=== PATIENT | male | born 1960 | race Caucasian/White ===

== ENCOUNTER → 2018-11-10 15:53 | Outpatient (CLI) | payer OTHER, SELFPAY ==
--- NOTE | 2018-11-10 | DI.RAD.S_ITS ---
PROCEDURE: XR FOOT RT MIN 3V INDICATIONS: RIGHT FOOT PAIN TECHNIQUE: 3 views of the foot were acquired. COMPARISON: None. FINDINGS: Bones: No fractures or dislocations. No suspicious bony lesions. Diffuse hindfoot midfoot degenerative spurring and subchondral sclerosis. Hallux valgus appearance although weightbearing views of the more specific. Small calcification adjacent to the first MTP joint. Os peroneum. Lucency involving the medial aspect of the first metatarsal head Soft tissues: No tibiotalar joint effusion. Achilles tendon appears normal. IMPRESSION: Hallux valgus first MTP joint degeneration. Diffuse hindfoot and midfoot degenerative spurring. No fracture. Lucency involving the medial aspect of the first metatarsal head. This could represent erosion related to inflammatory arthropathy such as gout. Please correlate clinically and with laboratory data Dictated by: Perry Giang M.D. on 11/10/2018 at 17:13 Approved by: Perry Giang M.D. on 11/10/2018 at 17:17
== END ==
PROVIDERS: PCP Family Medicine; Visit Provider Family Medicine
DX: M79.671 Pain in right foot (principal); M20.11 Hallux valgus (acquired), right foot; M19.071 Primary osteoarthritis, right ankle and foot; M77.51 Other enthesopathy of right foot and ankle
CPT/HCPCS: 73630

== ENCOUNTER → 2021-09-23 17:03 | Outpatient (ROUT) | payer OTHER, SELFPAY ==
[2021-09-23 18:05] LABS: COVID-19 CEPHEID PCR (VTM/NP) Negative (Negative)
== END ==
PROVIDERS: PCP Family Medicine; Visit Provider Family Medicine
DX: Z20.822 Contact with and (suspected) exposure to COVID-19 (principal)
CPT/HCPCS: U0003

== ENCOUNTER → 2022-07-30 14:29 | Outpatient (CLI) | payer OTHER, SELFPAY ==
--- NOTE | 2022-07-30 14:30 | DI.RAD.S_ITS ---
PROCEDURE: XR LUMBAR SPINE MIN 4V INDICATIONS: Low Back Pain TECHNIQUE: 5 views of the lumbar spine were acquired, including bilateral oblique views. COMPARISON: None. FINDINGS: Bones: 5 nonrib-bearing vertebrae are present. No significant scoliosis. There is retrolisthesis of L4 on L5 measuring at 0.4 cm. . No vertebral body compression fractures. Small vertebral body osteophytes. There is L5 facet joint hypertrophy. No suspicious bony lesions. Soft tissues: Overlying bowel gas pattern is normal. No suspicious soft tissue calcifications. Oblique images: No pars defects identified. IMPRESSION: No compression fracture. [id number] DDD. Dictated by: Yuniel Michelle M.D. on 07/30/2022 at 15:33 Approved by: Yuniel Michelle M.D. on 07/30/2022 at 15:34
== END ==
PROVIDERS: PCP Family Medicine; Referring Provider Anesthesiology; Visit Provider Anesthesiology
DX: M47.817 Spondylosis without myelopathy or radiculopathy, lumbosacral region (principal); M51.36 Other intervertebral disc degeneration, lumbar region
CPT/HCPCS: 72110

== ENCOUNTER → 2022-08-04 14:29 | Outpatient (CLI) | payer OTHER, SELFPAY ==
--- NOTE | 2022-08-04 14:31 | DI.RAD.S_ITS ---
PROCEDURE: XR CERVICAL SPINE 4V OR 5V INDICATIONS: Neck pain TECHNIQUE: Five views of the cervical spine were acquired. COMPARISON: None. FINDINGS: Disc height loss at C6-C7 with posterior osteophytic ridging of the endplates and uncovertebral spurring. Probable mild to moderate spinal canal or neural foraminal stenosis. Mild to moderate neural foraminal narrowing on the left at C3-C4. No suspicious lytic or blastic osseous lesion. IMPRESSION: Degenerative changes. No acute finding. Dictated by: Ciaran Alex M.D. on 08/04/2022 at 14:37 Approved by: Ciaran Alex M.D. on 08/04/2022 at 14:42
== END ==
PROVIDERS: PCP Family Medicine; Referring Provider Family Medicine; Visit Provider Family Medicine
DX: M54.2 Cervicalgia (principal); M47.812 Spondylosis without myelopathy or radiculopathy, cervical region
CPT/HCPCS: 72050

== ENCOUNTER → 2022-08-25 08:19 | Outpatient (CLI) | payer OTHER, SELFPAY ==
--- NOTE | 2022-08-25 08:22 | DI.MRI.S_ITS ---
PROCEDURE: MR LUMBAR SPINE WO CON INDICATIONS: Lumbar radiculopathy TECHNIQUE: Noncontrast sagittal T1 spin echo and T2 fast echo, sagittal STIR, and T2 fast spin echo through the lumbar spine. In cases with scoliosis, additional coronal T2 fast spin echo may be performed. COMPARISON: [facility], MR, L-SPINE WITHOUT CONTRAST, 11/11/2015, 19:48. [facility], MR, L-SPINE WITHOUT CONTRAST, 06/19/2008, 7:39. [facility], MR, L-SPINE WITHOUT CONTRAST, 03/08/2011, 19:24. [facility], CR, XR LUMBAR SPINE MIN 4V, 07/30/2022, 14:29. FINDINGS: Image quality: Diagnostic Alignment and Curvature: There is mild grade 1 retrolisthesis seen at L4-L5 and at L5-S1. Bone Marrow: Marrow is of normal overall signal. No acute vertebral body compression fractures. Spinal Cord: Conus medullaris terminates at the L1 level. Visualized cord demonstrates normal signal and size. Paraspinous Soft Tissues: No paravertebral masses. T12-L1: Normal appearance. L1-L2: The disc height and disk signal are relatively well-preserved. Mild generalized disc bulge is seen. There is a superimposed central disc protrusion. Mild facet joint hypertrophy is seen. No significant neural foraminal narrowing is seen. [id number] central canal narrowing is seen. These imaging findings have progressed compared to the prior study. L2-L3: The disc height is well-preserved. Loss of disc signal is seen at this level. Mild to moderate disc bulge is seen. Moderate facet joint hypertrophy is seen. No neural foraminal narrowing is seen. Mild to moderate central canal narrowing is seen. There is mild progression compared to 2016. L3-L4: The disc height and disk signal are well-preserved. Moderate disc bulge is seen, which is slightly eccentric to the right. Moderate to prominent facet hypertrophy is seen at this level. Mild bilateral neural foraminal narrowing is seen. Moderate central canal narrowing is seen. These imaging findings have progressed compared to the prior study. L4-L5: The disc height is well-preserved. Loss of disc signal is seen at this level. Moderate generalized disc bulge is seen. There is a superimposed central disc protrusion. There is a focal annular fissure seen posteriorly. Moderate facet joint hypertrophy is seen. There is moderate right-sided and at least moderate left-sided neural foraminal narrowing. There is a mild degree of compression seen upon the exiting left L4 nerve root. Moderate central canal narrowing is seen. These imaging findings have mildly progressed compared to the prior study. L5-S1: Moderate loss of disc height is seen. Loss of disc signal is seen. Reactive marrow endplate changes are seen, which are hyperintense on T1-weighted and T2-weighted imaging and most consistent with fatty metaplasia (Modic type II changes). At least moderate disc bulge is seen at this level, which is eccentric to the right. Moderate facet joint hypertrophy is seen. There is at least moderate left-sided and moderate right-sided neural foraminal narrowing. No significant central canal narrowing is seen. When comparison is made with the prior images, these findings are similar. IMPRESSION: Multiple levels of lumbar spine degenerative change are seen, which are worst inferiorly. There is progression at several levels compared to 2016. Dictated by: Bj Rodriguez M.D. on 08/25/2022 at 9:26 Approved by: Bj Rodriguez M.D. on 08/25/2022 at 9:32
== END ==
PROVIDERS: PCP Family Medicine; Referring Provider Anesthesiology; Visit Provider Anesthesiology
DX: M47.26 Other spondylosis with radiculopathy, lumbar region (principal); M47.27 Other spondylosis with radiculopathy, lumbosacral region
CPT/HCPCS: 72148

== ENCOUNTER 2022-11-18 15:28 | Outpatient (CLI) | payer OTHER, SELFPAY ==
--- NOTE | 2022-11-18 15:30 | DI.RAD.S_ITS ---
PROCEDURE: PAIN L/S FACET INJ/BLK 1ST LINSEY COMPARISON: [facility], MR, MR LUMBAR SPINE WO CON, 08/25/2022, 8:40. INDICATIONS: SPONDYLOSIS FINDINGS: Fluoroscopic spot filming was performed to verify placement of spinal needles on both sides at the L4, L5, and S1 levels, as labeled on the films. Appropriate location of the needle tips was confirmed by injection of iodinated contrast. IMPRESSION: Intraprocedural examination demonstrating appropriate positions of the needles. Dictated by: Bj Rodriguez M.D. on 11/18/2022 at 17:10 Approved by: Bj Rodriguez M.D. on 11/18/2022 at 17:10
[2022-11-18 15:40] VITALS: BP 113/78; PULSE 55; RESP 18; TEMP 36.1; O2SAT 98
[2022-11-18 16:15] VITALS: BP 122/67; PULSE 52; RESP 16; O2SAT 96
[2022-11-18] MEDS: IOPAMIDOL 15 ML VIAL 3 ML INJ (16:18)
[2022-11-18] MEDS: BUPIVACAINE 0.5% (PF) 30 ML VIAL 5 ML INJ (16:19)
[2022-11-18 16:20] VITALS: BP 121/69; PULSE 56; RESP 16; O2SAT 93
[2022-11-18 16:25] VITALS: BP 127/74; PULSE 50; RESP 16; O2SAT 96
[2022-11-18 16:30] VITALS: BP 136/83; PULSE 65; RESP 18; O2SAT 98
--- NOTE | 2022-11-18 17:01 | P.PCN_ITS ---
Date/Time/Diagnoses Date of procedure: 11/18/22 Time of procedure: 16:00 Procedure Notes Physician: Blu Beavers Total Fluoroscopy time (seconds): 13 Total sedation minutes: 0 Procedure in detail & Post-procedure care: Bilateral L3, 4, 5 Lumbar Medial Branch Blocks Indications: Pako is referred by Dr. George for treatment of lumbar spondylosis with low back pain. Preoperative diagnosis: Bilateral lumbar spondylosis Postoperative diagnosis: Same Pre-procedure History: Patient demonstrates today moderate to severe non- radicular back pain without neurologic deficit aggravated by hyperextension yes Back pain greater than leg pain? yes Patient today has tenderness over the suspected joint(s) yes History of post-traumatic injury? no Hypertrophic arthropathy yes Back pain associated with suspected motion segment instability, hypermobility or pseudoarthrosis no Pre-testing pain score (VAS): 6/10 Focused Examination: Ax3 Mood and affect are normal Vital Signs: VSS ASA: 2 Consent: Following review of allergies and potential side effects/complications, including, but not necessarily limited to, infection, allergic reaction, local tissue breakdown, stroke, temporary or permanent nerve injury, paralysis, and possible , the patient indicated that they understood and agreed to proceed.? An informed consent document was signed by the patient, witnessed by a nurse and placed in the patient's chart.? Additionally, other treatment options including medications and physical therapy were reviewed with the patient. All questions were answered. Site was then marked. Anesthesia: Local Position: Prone Monitoring: NIBP, Pulse oximetry, 3 lead EKG Needle used: 22G 3.5 inch spinal needle Contrast: Isovue 300M Injectate: 0.5% bupivacaine 1 mL per site Procedure: The patient was brought into the procedure room and positioned into the prone position. Skin was prepped with a Chloraprep solution, allowed to air dry, and then draped in sterile fashion.? The right L4-5 and L5-S1 facet joints were visually identified with fluoroscopy. Lidocaine 1% was used to anesthetize the skin over each target destination with a 25ga needle. A 22 ga, 3.5 inch spinal needle was advanced to the location of the medial branch at the junction of the superior articular process and the transverse process at L3,4,5 using intermittent fluoroscopy in the AP view. Isovue 300M contrast 0.2ml was injected at each level outlining the medial borders for each level and the base of the SAP of the sacrum in the AP and lateral views. There was no evidence of vascular or intrathecal uptake. The above injectate was slowly injected at each target destination. The left L4-5 and L5-S1 facet joints were visually identified with fluoroscopy. Lidocaine 1% was used to anesthetize the skin over each target destination with a 25ga needle. A 22 ga, 3.5 inch spinal needle was advanced to the location of the medial branch at the junction of the superior articular process and the transverse process at L3,4,5 using intermittent fluoroscopy in the AP view. Isovue 300M contrast 0.2ml was injected at each level outlining the medial borders for each level and the base of the SAP of the sacrum in the AP and lateral views. There was no evidence of vascular or intrathecal uptake. The above injectate was slowly injected at each target destination. At the end of the procedure the needles were withdrawn and Band-Aids were applied for a dressing. Post Procedure: Patient was taken to the recovery and monitored. The patient was provided a Pain Log to continue to record the patient's response to the target- specific procedure prior to the patient's follow-up visit with the referring physician. Patient was stable upon discharge. Detailed post procedure instructions were provided. Patient was asked to call in the event of worsening pain, fever, weakness, numbness or bladder or bowel incontinence. Postoperatively, today patient demonstrates the following changes with hyperextension and with tenderness over the suspected joint(s). Provacative testing using the Freeman's facet loading test Right side Left side Directly before the block ?VAS (0-10) = 6/10 VAS (0-10) = 6/10 5 minutes after the block VAS (0-10) = 0/10 VAS (0-10) = 0/10 Percentage relief obtained with this diagnostic block 100 % 100 % Any improved physical functioning directly after the blocks? Range of motion Based on the medial branches blocked today, if the patient meets insurance criteria for radiofrequency, the treatment should result in the denervation of the bilateral L4-5 and L5-S1 facet joint nerves. We would expect to denervate a total of 4 facets during the radiofrequency ablation.
== END 2022-11-18 16:44 | disposition home or self-care (01) ==
PROVIDERS: PCP Family Medicine; Referring Provider Anesthesiology; Visit Provider Anesthesiology
DX: M47.816 Spondylosis without myelopathy or radiculopathy, lumbar region (principal)
CPT/HCPCS: 64493; 64494

== ENCOUNTER 2022-12-21 08:00 | Outpatient (CLI) | payer OTHER, SELFPAY ==
--- NOTE | 2022-12-21 08:02 | DI.RAD.S_ITS ---
PROCEDURE: PAIN L/S FACET INJ/BLK 1ST LINSEY COMPARISON: [facility], XA, PAIN L/S FACET INJ/BLK 1ST LINSEY, 11/18/2022, 16:16. INDICATIONS: SPONDYLOSIS FINDINGS: Four intra procedural fluoroscopic images obtained for guidance and anatomical localization. IMPRESSION: Intraprocedural fluoroscopy was provided for guidance and anatomical localization. Please see the procedure report for further details. Dictated by: Antwon Lund M.D. on 12/21/2022 at 16:26 Approved by: Antwon Lund M.D. on 12/21/2022 at 16:27
[2022-12-21 08:05] VITALS: BP 120/81; PULSE 50; RESP 18; TEMP 36.3; O2SAT 97
[2022-12-21 08:20] VITALS: BP 126/79; PULSE 53; RESP 14; O2SAT 96
[2022-12-21 08:25] VITALS: PULSE 50; RESP 15; O2SAT 96
[2022-12-21] MEDS: IOPAMIDOL 15 ML VIAL 3 ML INJ (08:27)
[2022-12-21] MEDS: LIDOCAINE 2% INJ MDV 20ML 20 ML INJ (08:27)
[2022-12-21 08:30] VITALS: BP 108/70; PULSE 51; RESP 15; O2SAT 96
[2022-12-21 08:34] VITALS: BP 111/67; PULSE 50; RESP 15; O2SAT 96
[2022-12-21 08:37] VITALS: BP 130/86; PULSE 67; RESP 18; O2SAT 97
--- NOTE | 2022-12-21 10:28 | P.PCN_ITS ---
Date/Time/Diagnoses Date of procedure: 12/21/22 Time of procedure: 08:30 Procedure Notes Physician: Blu Beavers Total Fluoroscopy time (seconds): 9 Total sedation minutes: 0 Procedure in detail & Post-procedure care: Bilateral L3, 4, 5 Lumbar Medial Branch Blocks Indications: Pako is presenting for treatment of lumbar spondylosis with low back pain. Preoperative diagnosis: Bilateral lumbar spondylosis Postoperative diagnosis: Same Pre-procedure History: Patient demonstrates today moderate to severe non- radicular back pain without neurologic deficit aggravated by hyperextension yes Back pain greater than leg pain? yes Patient today has tenderness over the suspected joint(s) yes History of post-traumatic injury? no Hypertrophic arthropathy yes Back pain associated with suspected motion segment instability, hypermobility or pseudoarthrosis no Pre-testing pain score (VAS): 6/10 Focused Examination: Ax3 Mood and affect are normal Vital Signs: VSS ASA: 2 Consent: Following review of allergies and potential side effects/complications, including, but not necessarily limited to, infection, allergic reaction, local tissue breakdown, stroke, temporary or permanent nerve injury, paralysis, and possible , the patient indicated that they understood and agreed to proceed.? An informed consent document was signed by the patient, witnessed by a nurse and placed in the patient's chart.? Additionally, other treatment options including medications and physical therapy were reviewed with the patient. All questions were answered. Site was then marked. Anesthesia: Local Position: Prone Monitoring: NIBP, Pulse oximetry, 3 lead EKG Needle used: 25G 3.5 inch spinal needle Contrast: Isovue 300M Injectate: 2% lidocaine 1 mL per site Procedure: The patient was brought into the procedure room and positioned into the prone position. Skin was prepped with a Chloraprep solution, allowed to air dry, and then draped in sterile fashion.? The right L4-5 and L5-S1 facet joints were visually identified with fluoroscopy. Lidocaine 1% was used to anesthetize the skin over each target destination with a 25ga needle. A 25 ga, 3.5 inch spinal needle was advanced to the location of the medial branch at the junction of the superior articular process and the transverse process at L3,4,5 using intermittent fluoroscopy in the AP view. Isovue 300M contrast 0.2ml was injected at each level outlining the medial borders for each level and the base of the SAP of the sacrum in the AP and lateral views. There was no evidence of vascular or intrathecal uptake. The above injectate was slowly injected at each target destination. The left L4-5 and L5-S1 facet joints were visually identified with fluoroscopy. Lidocaine 1% was used to anesthetize the skin over each target destination with a 25ga needle. A 22 ga, 3.5 inch spinal needle was advanced to the location of the medial branch at the junction of the superior articular process and the transverse process at L3,4,5 using intermittent fluoroscopy in the AP view. Isovue 300M contrast 0.2ml was injected at each level outlining the medial borders for each level and the base of the SAP of the sacrum in the AP and lateral views. There was no evidence of vascular or intrathecal uptake. The above injectate was slowly injected at each target destination. At the end of the procedure the needles were withdrawn and Band-Aids were applied for a dressing. At the end of the procedure the needles were withdrawn and Band-Aids were applied for a dressing. Post Procedure: Patient was taken to the recovery and monitored. The patient was provided a Pain Log to continue to record the patient's response to the target- specific procedure prior to the patient's follow-up visit with the referring physician. Patient was stable upon discharge. Detailed post procedure instructions were provided. Patient was asked to call in the event of worsening pain, fever, weakness, numbness or bladder or bowel incontinence. Postoperatively, today patient demonstrates the following changes with hyperextension and with tenderness over the suspected joint(s). Provacative testing using the Freeman's facet loading test Right side Left side Directly before the block ?VAS (0-10) = 6/10 VAS (0-10) = 6/10 5 minutes after the block VAS (0-10) = 0/10 VAS (0-10) = 0/10 Percentage relief obtained with this diagnostic block 100 % 100 % Any improved physical functioning directly after the blocks? Range of motion Based on the medial branches blocked today, if the patient meets insurance [place] for radiofrequency, the treatment should result in the denervation of the bilateral L4-5 and L5-S1 facet joint nerves. We would expect to denervate a total of 4 facets during the radiofrequency ablation.
== END 2022-12-21 08:49 | disposition home or self-care (01) ==
LOC: RAD 08:01
PROVIDERS: PCP Family Medicine; Referring Provider Anesthesiology; Visit Provider Anesthesiology
DX: M47.816 Spondylosis without myelopathy or radiculopathy, lumbar region (principal)
CPT/HCPCS: 64493; 64494

== ENCOUNTER 2023-01-12 09:25 | Outpatient (CLI) | payer OTHER, SELFPAY ==
[2023-01-12] VITALS (12 sets, daily range): BP systolic 118–152; BP diastolic 63–97; PULSE 49–62; RESP 12–18; TEMP 36.4; O2SAT 96–98
--- NOTE | 2023-01-12 09:26 | DI.RAD.S_ITS ---
PROCEDURE: PAIN L/S MED/LAT N RFA BILAT INDICATIONS: SPONDYLOSIS COMPARISON: [facility], XA, PAIN L/S FACET INJ/BLK 1ST LINSEY, 11/18/2022, 16:16. [facility], XA, PAIN L/S FACET INJ/BLK 1ST LINSEY, 12/21/2022, 8:26. FINDINGS: Fluoroscopic spot filming was performed to verify placement of spinal needles on both sides at the L4, L5, and S1 levels, as labeled on the films. IMPRESSION: Images during rhizotomy within normal limits. Dictated by: Bj Rodriguez M.D. on 01/12/2023 at 11:18 Approved by: Bj Rodriguez M.D. on 01/12/2023 at 11:18
[2023-01-12] MEDS: LIDOCAINE 2% INJ MDV 20ML 20 ML INJ (09:48)
[2023-01-12] MEDS: BUPIVACAINE 0.5% (PF) 10 ML VIAL INJ (09:48)
[2023-01-12] MEDS: DEXAMETHASONE 10 MG/ML VIAL 20 MG INJ (09:48)
--- NOTE | 2023-01-12 10:59 | PC.NURSE ---
Patient reports that his dizziness and lightheaded is better. Reports he feels good to go home. called. Denies dizziness from transfer from chair to w/c and w/c to car. Denies any pain or discomfort
--- NOTE | 2023-01-12 13:48 | P.PCN_ITS ---
Date/Time/Diagnoses Date of procedure: 01/12/23 Time of procedure: 10:00 Procedure Notes Physician: Blu Beavers Total Fluoroscopy time (seconds): 30 Total sedation minutes: 0 Procedure in detail & Post-procedure care: Bilateral L3, 4, 5 Lumbar Medial Branch Radio Frequency Ablation Indications: Pako presents for treatment of lumbar spondylosis with low back pain. Preoperative diagnosis: Bilateral lumbar spondylosis Postoperative diagnosis: Same Pre-procedure History: Patient demonstrates today moderate to severe non-radicular low back pain without neurologic deficit aggravated by hyperextension yes Back pain greater than leg pain? yes Patient today has tenderness over the suspected joint(s) yes History of post-traumatic injury? no Hypertrophic arthropathy yes Back pain associated with suspected motion segment instability, hypermobility or pseudoarthrosis no Focused Examination: Ax3 Mood and affect are normal Vital Signs: VSS Consent: Following review of allergies and potential side effects/complications, including, but not necessarily limited to, infection, allergic reaction, local tissue breakdown, stroke, temporary or permanent nerve injury, paralysis, and possible , the patient indicated that they understood and agreed to proceed.? An informed consent document was signed by the patient, witnessed by a nurse and placed in the patient's chart.? Additionally, other treatment options including medications and physical therapy were reviewed with the patient. All questions were answered. Site was then marked. Position: Prone Monitoring: NIBP, Pulse oximetry, 3 lead EKG Needle used: 18 guage, 100 mm, 10 mm active tip Anesthesia: Local Procedure: The patient was brought into the procedure room and positioned into the prone position. Skin was prepped with a Chloraprep solution, allowed to air dry, and then draped in sterile fashion.? The right L4-5 and L5-S1 facet joints were visually identified with fluoroscopy. Lidocaine 1% was used to anesthetize the skin over each target destination with a 25ga needle. An 18 ga, 100 mm RFA needle with a 10 mm active tip was advanced to the location of the medial branch at the junction of the superior articular process and the transverse process at right L3, 4, 5 using intermittent fluoroscopy in the oblique view with caudal tilt. AP and lateral radiographs were taken to confirm proper needle placement. No paresthesias were noted. The stylet was removed and the radiofrequency probe was inserted through the cannula. Each level was individually tested. The impedance was between 300 and 800 ohms at all levels.? Motor stimulation up to 2V elicited multifidus twitching in the lumbar spine. There was no motor stimulation in the lower extremities. After negative aspiration, 1ml of 2% lidocaine was injected at each of the levels and radiofrequency denervation carried out using 80 degrees Celsius for 90 seconds. The needles were then rotated 90 degrees and a second ablation was performed at 80 degrees Celsius for 90 seconds. After ablation, a mixture of 20 mg dexamethasone with 0.5% bupivacaine 4 mL was injected in equal amounts among the sites (1 mL per site). Next, the left L4-5 and L5-S1 facet joints were visually identified with fluoroscopy. Lidocaine 1% was used to anesthetize the skin over each target destination with a 25ga needle. An 18 ga, 100 mm RFA needle with a 10 mm active tip was advanced to the location of the medial branch at the junction of the superior articular process and the transverse process at left L3, 4, 5 using intermittent fluoroscopy in the oblique view with caudal tilt. AP and lateral radiographs were taken to confirm proper needle placement. No paresthesias were noted. The stylet was removed and the radiofrequency probe was inserted through the cannula. Each level was individually tested. The impedance was between 300 and 800 ohms at all levels.? Motor stimulation up to 2V elicited multifidus twitching in the lumbar spine. There was no motor stimulation in the lower extremities. After negative aspiration, 1ml of 2% lidocaine was injected at each of the levels and radiofrequency denervation carried out using 80 degrees Celsius for 90 seconds. The needles were then rotated 90 degrees and a second ablation was performed at 80 degrees Celsius for 90 seconds. After ablation, a mixture of 20 mg dexamethasone with 0.5% bupivacaine 4 mL was injected in equal amounts among the sites (1 mL per site). At the end of the procedure the needles were withdrawn and Band-Aids were applied for a dressing. This procedure is expected to denervate the bilateral L4-5 and L5-S1 facet joints. Post Procedure: Patient was taken to the recovery and monitored. The patient was provided a Pain Log to continue to record the patient's response to the target- specific procedure prior to the patient's follow-up visit with the referring physician. Patient was stable upon discharge. Detailed post procedure instructions were provided. Patient was asked to call in the event of worsening pain, fever, weakness, numbness or bladder or bowel incontinence. Complications: None
== END 2023-01-12 11:01 | disposition home or self-care (01) ==
PROVIDERS: PCP Family Medicine; Referring Provider Anesthesiology; Visit Provider Anesthesiology
DX: M47.816 Spondylosis without myelopathy or radiculopathy, lumbar region (principal)
CPT/HCPCS: 64635; 64636; J1100

== ENCOUNTER 2023-04-06 07:52 | Outpatient (CLI) | payer OTHER, SELFPAY ==
--- NOTE | 2023-04-06 07:53 | DI.RAD.S_ITS ---
PROCEDURE: PAIN SI JOINT INJECTION LINSEY INDICATIONS: JOINT DISFUNCTION COMPARISON: [facility], XA, PAIN L/S MED/LAT N RFA BILAT, 01/12/2023, 9:46. FINDINGS: Fluoroscopic spot filming was performed to verify placement of spinal needles involving both sacroiliac joints. Appropriate location(s) of the needle tip(s) was confirmed by injection of iodinated contrast. IMPRESSION: Intraprocedural examination within normal limits. Dictated by: Bj Rodriguez M.D. on 04/06/2023 at 18:41 Approved by: Bj Rodriguez M.D. on 04/06/2023 at 18:41
[2023-04-06 08:01] VITALS: BP 114/77; PULSE 51; RESP 16; TEMP 35.9; O2SAT 96
[2023-04-06 08:15] VITALS: BP 123/75; PULSE 48; RESP 16; O2SAT 98
[2023-04-06] MEDS: IOPAMIDOL 15 ML VIAL 3 ML INJ (08:15)
[2023-04-06] MEDS: DEXAMETHASONE 10 MG/ML VIAL 20 MG INJ (08:15)
[2023-04-06 08:20] VITALS: BP 124/80; PULSE 45; RESP 9; O2SAT 99
[2023-04-06 08:24] VITALS: BP 128/81; PULSE 47; RESP 12; O2SAT 99
[2023-04-06 08:30] VITALS: BP 122/74; PULSE 55; RESP 16; O2SAT 98
--- NOTE | 2023-04-06 11:40 | P.PCN_ITS ---
Date/Time/Diagnoses Date of procedure: 04/06/23 Time of procedure: 08:00 Procedure Notes Physician: Blu Beavers Total Fluoroscopy time (seconds): 18 Total sedation minutes: 0 Procedure in detail & Post-procedure care: Bilateral Sacroiliac Joint Injection Indications: Pako is presenting for treatment of SI joint dysfunction with low back/buttock pain. Preoperative diagnosis: Bilateral SI joint dysfunction Postoperative diagnosis: Same Focused Examination: Ax3 Mood and affect are normal Vital Signs: VSS Consent: Following review of allergies and potential side effects/complications, including, but not necessarily limited to, infection, allergic reaction, local tissue breakdown, stroke, temporary or permanent nerve injury, paralysis, and possible , the patient indicated that they understood and agreed to proceed.? An informed consent document was signed by the patient, witnessed by a nurse and placed in the patient's chart.? Additionally, other treatment options including medications and physical therapy were reviewed with the patient. All q uestions were answered. Site was then marked. Anesthesia: Local Position: Prone Monitoring: NIBP, Pulse oximetry, 3 lead EKG Needle used: 22 ga, 3.5 inch spinal Contrast: 2 mL Isovue M-300 Injectate: Dexamethasone 7.5 mg with 1% lidocaine 2 mL per site Technique: The skin was prepped with chloraprep and then draped in a sterile fashion. Time out was performed as per protocol. Oxygen applied via NC. Skin and subcutaneous structures of the needle entry site was then infiltrated with 5 mL of lidocaine 1%. Under AP and lateral fluoroscopic control, the spinal needle was guided into the right sacroiliac joint. 1 mL contrast was injected and was consistent with intra-articular placement. There was no evidence for intravascular uptake. After negative aspiration, the above-mentioned injectate was then slowly administered and the needle withdrawn. The patient expressed no unusual discomfort or paresthesias during the injection. Skin and subcutaneous structures of the needle entry site was then infiltrated with 5 mL of lidocaine 1%. Under AP and lateral fluoroscopic control, the spinal needle was guided into the left sacroiliac joint. 1 mL contrast was injected and was consistent with intra-articular placement. There was no evidence for intravascular uptake. After negative aspiration, the above-mentioned injectate was then slowly administered and the needle withdrawn. The patient expressed no unusual discomfort or paresthesias during the injection.Band-Aids applied to injection sites. EBL: less than 1 ml Complications: None Post Procedure: Patient was taken to the recovery and monitored. The patient was provided a Pain Log to continue to record the patient's response to the target- specific procedure prior to the patient's follow-up visit with the referring physician. Patient was stable upon discharge. Detailed post procedure instructions were provided. Patient was asked to call in the event of worsening pain, fever, weakness, numbness or bladder or bowel incontinence.
== END 2023-04-06 08:33 | disposition home or self-care (01) ==
LOC: RAD 07:53
PROVIDERS: PCP Family Medicine; Referring Provider Anesthesiology; Visit Provider Anesthesiology
DX: M53.3 Sacrococcygeal disorders, not elsewhere classified (principal)
CPT/HCPCS: 27096; J1100

== ENCOUNTER 2023-08-17 08:27 | Outpatient (CLI) | payer OTHER, SELFPAY ==
[2023-08-17 08:35] VITALS: BP 126/76; PULSE 56; RESP 15; TEMP 36.3; O2SAT 98
[2023-08-17 08:50] VITALS: BP 112/68; PULSE 50; RESP 12; O2SAT 99
[2023-08-17] MEDS: BUPIVACAINE 0.5% (PF) 10 ML VIAL 5 ML INJ (08:54)
[2023-08-17] MEDS: iopamidoL 15 ML VIAL 3 ML INJ (08:54)
[2023-08-17 08:55] VITALS: BP 107/68; PULSE 51; RESP 14; O2SAT 99
[2023-08-17 09:00] VITALS: BP 108/68; PULSE 57; RESP 16; O2SAT 98
--- NOTE | 2023-08-17 09:00 | DI.RAD.S_ITS ---
PROCEDURE: PAIN SI JOINT INJECTION LINSEY INDICATIONS: SI Joint dysfunction COMPARISON: [facility], XA, PAIN SI JOINT INJECTION LINSEY, 04/06/2023, 8:15. FINDINGS: Fluoroscopic spot filming was performed to verify placement of spinal needles at the bilateral SI joints, as labeled on the films. Appropriate location(s) of the needle tip(s) was confirmed by injection of iodinated contrast. IMPRESSION: Intra procedural examination demonstrating appropriate positions of the needles. Dictated by: Ki Javier M.D. on 08/17/2023 at 12:07 Approved by: Ki Javier M.D. on 08/17/2023 at 12:08
[2023-08-17 09:05] VITALS: BP 118/84; PULSE 58; RESP 16; O2SAT 97
--- NOTE | 2023-08-17 09:08 | P.PCN_ITS ---
Date/Time/Diagnoses Date of procedure: 08/17/23 Time of procedure: 09:00 Procedure Notes Physician: Blu Beavers Total Fluoroscopy time (seconds): 18 Total sedation minutes: 0 Procedure in detail & Post-procedure care: Bilateral Sacroiliac Joint Injection Indications: Pako is presenting for treatment of SI joint dysfunction with low back/buttock pain. Preoperative diagnosis: Bilateral SI joint dysfunction Postoperative diagnosis: Same Focused Examination: Ax3 Mood and affect are normal Vital Signs: VSS Consent: Following review of allergies and potential side effects/complications, including, but not necessarily limited to, infection, allergic reaction, local tissue breakdown, stroke, temporary or permanent nerve injury, paralysis, and possible , the patient indicated that they understood and agreed to proceed.? An informed consent document was signed by the patient, witnessed by a nurse and placed in the patient's chart.? Additionally, other treatment options including medications and physical therapy were reviewed with the patient. All questions were answered. Site was then marked. Anesthesia: Local Position: Prone Monitoring: NIBP, Pulse oximetry, 3 lead EKG Needle used: 22 ga, 3.5 inch spinal Contrast: 2 mL Isovue M-300 Injectate: Depo-Medrol 40 mg with 0.5% bupivacaine 2 mL per side Technique: The skin was prepped with chloraprep and then draped in a sterile fashion. Time out was performed as per protocol. Oxygen applied via NC. Skin and subcutaneous structures of the needle entry site was then infiltrated with 5 mL of lidocaine 1%. Under AP and lateral fluoroscopic control, the spinal needle was guided into the right sacroiliac joint. 1 mL contrast was injected and was consistent with intra-articular placement. There was no evidence for intravascular uptake. After negative aspiration, the above-mentioned injectate was then slowly administered and the needle withdrawn. The patient expressed no unusual discomfort or paresthesias during the injection. Skin and subcutaneous structures of the needle entry site was then infiltrated with 5 mL of lidocaine 1%. Under AP and lateral fluoroscopic control, the spinal needle was guided into the left sacroiliac joint. 1 mL contrast was injected and was consistent with intra-articular placement. There was no evidence for intravascular uptake. After negative aspiration, the above-mentioned injectate was then slowly administered and the needle withdrawn. The patient expressed no unusual discomfort or paresthesias during the injection. Band-Aids applied to injection sites. EBL: less than 1 ml Complications: None Post Procedure: Patient was taken to the recovery and monitored. The patient was provided a Pain Log to continue to record the patient's response to the target- specific procedure prior to the patient's follow-up visit with the referring physician. Patient was stable upon discharge. Detailed post procedure instructions were provided. Patient was asked to call in the event of worsening pain, fever, weakness, numbness or bladder or bowel incontinence.
== END 2023-08-17 09:27 | disposition home or self-care (01) ==
PROVIDERS: PCP Family Medicine; Referring Provider Anesthesiology; Visit Provider Anesthesiology
DX: M53.3 Sacrococcygeal disorders, not elsewhere classified (principal)
CPT/HCPCS: 27096; J1030; J2920

== ENCOUNTER → 2024-09-06 08:33 | Outpatient (CLI) | payer OTHER, SELFPAY ==
--- NOTE | 2024-09-06 08:35 | DI.US.S_ITS ---
PROCEDURE: US ABDOMEN COMPLETE INDICATIONS: GENERALIZED ABDOMINAL PAIN TECHNIQUE: Real-time scanning was performed of the abdominal and retroperitoneal organs, with image documentation. COMPARISON: None. FINDINGS: Liver: Liver is normal in size and homogeneous in echotexture, diffusely hyperechoic consistent with fatty infiltration. Several scattered hepatic cysts are seen, simple in character, measuring up to 7 mm in the left hepatic lobe and 1.5 cm in the right hepatic lobe. . Gallbladder: No gallstones. No wall thickening. No pericholecystic edema. Negative sonographic Camargo's sign. Biliary ducts: Intrahepatic bile ducts are non-dilated. Extrahepatic bile duct caliber measures approximately 5 mm, relatively poorly seen due to overlying bowel gas. Normal is 6-7 mm or less in diameter, or 10 mm or less post-cholecystectomy. Pancreas: Visualized portions of the pancreas are sonographically normal. Miscellaneous: No free abdominal fluid. The kidneys are normal in size and position, and contains several small simple cysts. Normal aorta and iliac arteries. IVC appears patent. IMPRESSION: No acute disease. Increased echotexture throughout the liver consistent with fatty infiltration. Several scattered small hepatic and renal cysts which require no follow-up. Source of current pain is not seen. Dictated by: Jann Terrazas M.D. on 09/06/2024 at 12:49 Approved by: Jann Terrazas M.D. on 09/06/2024 at 12:52
== END ==
PROVIDERS: PCP Family Medicine; Referring Provider Family Medicine; Visit Provider Family Medicine
DX: K76.89 Other specified diseases of liver (principal); N28.1 Cyst of kidney, acquired; R10.84 Generalized abdominal pain
CPT/HCPCS: 76700